=== PATIENT | male | born 1965 | race Caucasian/White ===

== ENCOUNTER 2019-09-24 17:10 | Emergency (ER) | payer OTHER ==
[~2019-09-24] VITALS: Ht 180.3 cm; Wt 78.9 kg
--- NOTE | 2019-09-24 19:49 | NUR ---
09/24/191948 Destin Molina History, Chart, Medications and Allergies reviewed before start of procedure.MONITOR INTACT WITH CONTINUOUS PULSE OXIMETRY AND INTERMITTENT BP.3-LEAD EKG REVIEWED WITH PHYSICIAN PRIOR TO START OF PROCEDURE.O2 VIA N/C INTACT THROUGHOUT SEDATION/PROCEDURE. See Anesthesia record.
--- NOTE | 2019-09-24 20:59 | NUR ---
Patient up to Ambulate independently. Gait steady. Discharge instructions reviewed with patient. Patient verbalizes understanding. Copy given to patient to take home. Patient States Post-Procedure ride home has been arranged. DC'd IV SITE THAT WAS PLACED BY ER STAFF. TOLERATED PO INTAKE WELL WITHOUT ANY DIFFICULTIES. DR CHRISTIE SPOKE WITH PATIENT.
== END 2019-09-24 19:30 | disposition other institution (70) ==
LOC: ER 17:10
DX: T18.128A Food in esophagus causing other injury, initial encounter (principal)
CPT/HCPCS: 96374-59; 96375-59; 99284-25; J1610; J2704; J3360; J7120